=== PATIENT | female | born 1935 | race Two or more races ===

== ENCOUNTER 2018-08-11 08:32 | Inpatient (IN) | payer MEDICARE, OTHER ==
[~2018-08-11] VITALS: Ht 157.5 cm; Wt 59.0 kg
[~2018-08-11 08:32] MED LIST: OLME1TAB50 PO; RIVA10TA PO
[2018-08-11] MEDS ORDERED: CELECOXIB 100 MG CAPSULE ONE (10:14)
[2018-08-11] MEDS ORDERED: ACETAMINOPHEN 325 MG TABLET ONE ×2 (10:14→10:16)
[2018-08-11] MEDS ORDERED: oxyCODONE HCL SR 10MG TAB.SR.12H PO ONE (10:14)
[2018-08-11] MEDS ORDERED: TRANEXAMIC ACID 3,000 MG in SODIUM CHLORIDE IRRIG SOLUTION 70 ML IR ONE (10:30)
[2018-08-11] MEDS ORDERED: BACITRACIN 50000 UNITS/VIAL ONE (10:44)
[2018-08-11] MEDS ORDERED: BUPIVACAINE 0.5 % PF 150 MG/30 ML VIAL ONE (10:44)
[2018-08-11] MEDS ORDERED: LIDOCAINE /MPF 1% VIAL 5 ML VIAL ONE (10:45)
[2018-08-11] MEDS ORDERED: MIDAZOLAM HCL 2 MG/2ML VIAL ONE (10:48)
[2018-08-11] MEDS ORDERED: FENTANYL PF 250MCG/5ML AMPUL ONE (10:48)
[2018-08-11] MEDS ORDERED: ROCURONIUM BROMIDE 50 MG/5 ML ONE (10:49)
[2018-08-11] MEDS ORDERED: ZOLPIDEM TARTRATE 10 MG TABLET PO PRN (12:00)
[2018-08-11] MEDS ORDERED: BISACODYL SUPP (10 MG) 10 MG/SUPP.RECT SUPP.RECT RC PRN (12:00)
[2018-08-11] MEDS ORDERED: ONDANSETRON HCL/PF 4 MG/2 ML VIAL IV PRN (12:00)
[2018-08-11] MEDS ORDERED: HYDROMORPHONE 1 MG/1 ML DISP.SYRIN SQ PRN (12:00)
[2018-08-11] MEDS ORDERED: MAG HYDROX/AL HYDROX/SIMETH 30 ML UDC PO PRN (12:00)
[2018-08-11] MEDS ORDERED: diphenhydrAMINE HCL 25 MG CAPSULE PO PRN (12:00)
[2018-08-11] MEDS ORDERED: CLONIDINE HCL 0.1 MG TABLET PO PRN (12:00)
[2018-08-11] MEDS ORDERED: FENTANYL PF 100MCG/2ML AMPUL ONE (13:22)
[2018-08-11 14:10] VITALS: BP 132/71
--- NOTE | 2018-08-11 14:10 | NUR ---
MOLD REPAIRER NOTES PATIENT ADMITTED FROM OR 83Y/OLD FEMALE ON TOTAL RIGHT HIP SURGERY. PATIENT A/O X3, ABDUCTION PILLOW ON, DVT PUMP ON, IV ACCESS ON RIGHT AC, AND LEFT WRIST INTACT, STARTED LR AT 75 ML./HR INTACT, PATIENT HAS NO ACUTE RESPIRATORY DISTRESS, ON NC, PATIENT WAS COMPLAINING OF PAIN 7/10 AT THIS TIME ON RIGHT HIP.V/S STABLE T-97.7, P65, R-19, BP-132/71, O2-99NC. PATIENT USING BEDPAN, ASSIST TURN AND REPOSTION Q 2 HR. GIVEN INTENSIVE SPIROMETER AND EDUCATED. PATIENT VERBALIZED UNDERSTANDING. ORDERS TAKEN AND CARRIED OUT. HOSPITALIST AWARE OF NEW PATIENT. SON NEXT TO THE BED, CONTINUED MONITORING.
[2018-08-11] MEDS ORDERED: ACETAMINOPHEN 325 MG TABLET PO PRN (14:30)
[2018-08-11] MEDS ORDERED: SENNOSIDES 8.6 MG TABLET PO PRN (14:30)
[2018-08-11] MEDS: IV LR 1000 ML 1,000 ML IV PRN (14:55)
--- NOTE | 2018-08-11 15:14 | NUR ---
RN NOTES ADMINISTERED DILAUDID 0.5 MG /ML SQ RIGHT DELTOID ATRA PER PATIENT REQUEST PAIN 7/10, V/S TAKEN BP 115/67, P-68. SON NEXT OT THE B, CALL LIGHT WITHIN TO REACH, CONTINUED MONITORING.
[2018-08-11 15:17] VITALS: BP 115/67
[2018-08-11 16:00] VITALS: BP 102/56
[2018-08-11] MEDS ORDERED: BISO5TAB2 PO (16:36)
[2018-08-11] MEDS: DOCUSATE SODIUM 100 MG CAPSULE PO SCH (17:17)
[2018-08-11] MEDS: HYDROCODONE/APAP 5/325MG 1 EACH TABLET PO PRN (18:43)
--- NOTE | 2018-08-11 18:43 | NUR ---
RN NOTES ADMINISTERED NARCO 5/325 MG PO PRN FOR RIGHT HIP PAIN 5/10 PER PATIENT REQUEST, BP-102/56, P-58. PUT PATIENT BED BORREGO BY PATIENT UNABLE TO URINATE, OFFERED MORE FLUIDS TOLERATED. ASSIST PATIENT TURN ON LEFT SIDE USING PILLOWS. ABDUCTION PILLOW ON, CALL LIGHT WITHIN TO REACH, PATIENT USING SPIROMETER, CALL LIGHT WITHIN TO REACH, CONTINUED MONITORING. ENDORSED ONCOMING NURSE FOR PLAN OF CARE.
[2018-08-11] MEDS ORDERED: Z GUARD REMEDY 2 OZ OINT TP PRN (19:00)
--- NOTE | 2018-08-11 19:10 | NUR ---
MS RN NOTE RECEIVED PT IN STABLE CONDITION A&O X4, ABLE TO MAKE NEEDS KNOWN. CURRENTLY RESTING IN BED. NO SIGNS OF SOB OR DISTRESS, NO C/O PAIN. IVF INFUSING, TOLERATING WELL. LAU PATENT WITH ADEQUATE URINE DRAINING. ALL CURRENT NEEDS MET. SAFETY PRECAUTIONS IN PLACE: BED LOW, LOCKED, UPPER RAILS UP, AND CALL LIGHT WITHIN REACH.
--- NOTE | 2018-08-11 19:30 | NUR ---
RN NOTES PATIENT UNABLE TO URINATE , BLADDER SCAN DONE GET 298 ML, APPLIED F/C SIZE 16 WITH ASSIST OF NIGHT NURSE.
[2018-08-11 20:00] VITALS: BP 107/65
[2018-08-11] MEDS: ANCEF 1 GM/50 ML D5W IV SCH ×2 (20:13)
[2018-08-11] MEDS: FAMOTIDINE (20 MG) 20 MG TABLET PO SCH (20:14)
--- NOTE | 2018-08-11 22:30 | NUR ---
MS RN NOTE ASSESSED PT'S PAIN. PT STATES THAT PAIN IS TOLERABLE AT THIS TIME AND DOES NOT REQUEST ANY PAIN MEDICATION. WILL CONT TO MONITOR.
[2018-08-12] MEDS: ANCEF 1 GM/50 ML D5W IV SCH ×2 (03:01)
[2018-08-12] MEDS: IV LR 1000 ML 1,000 ML IV PRN ×2 (05:18→23:34)
--- NOTE | 2018-08-12 06:29 | NUR ---
MS RN NOTE PT IN STABLE CONDITION A&O X4, ABLE TO MAKE NEEDS KNOWN. CURRENTLY RESTING IN BED. NO SIGNS OF SOB OR DISTRESS, NO C/O PAIN. IVF INFUSING, TOLERATING WELL. LAU PATENT WITH ADEQUATE URINE DRAINING. ALL CURRENT NEEDS MET. SAFETY PRECAUTIONS IN PLACE: BED LOW, LOCKED, UPPER RAILS UP, AND CALL LIGHT WITHIN REACH AND ENDORSE TO NEXT SHIFT FOR CARY.
[2018-08-12 07:01] LABS: BASOPHILS % (AUTO) 0.1 % (0.0-2.0); EOSINOPHILS % (AUTO) 0.1 % (0.0-6.0); HEMATOCRIT 32 % (33-45); HEMOGLOBIN 10.7 g/dL (11.5-14.8); LYMPHOCYTES # (AUTO) 1.3 /CMM (0.8-4.8); LYMPHOCYTES % (AUTO) 10.4 % (20.0-44.0); MEAN CORPUSCULAR HGB CONC 33 g/dl (31.0-36.0); MEAN CORPUSCULAR VOLUME 84 fL (82-100); MONOCYTES # (AUTO) 1.2 /CMM (0.1-1.30); MONOCYTES % (AUTO) 9.4 % (2.0-12.0); PLATELET COUNT (AUTO) 164 /CMM (150-450); RED BLOOD CELL COUNT(AUTO) 3.81 MIL/uL (4.0-5.2); WHITE BLOOD COUNT (AUTO) 12.4 K/uL (4.3-11.0)
[2018-08-12 07:07] LABS: CHOLESTEROL 179 mg/dL (<200); HDL CHOLESTEROL 31 mg/dL (40-60); LDL 128 mg/dL (0-99); THYROID STIMULATING HORMONE 1.198 uIU/mL (0.358-3.74); TRIGLYCERIDES 175 mg/dL (30-150)
[2018-08-12 07:13] LABS: CALCIUM, SERUM 9.1 mg/dL (8.5-10.1); CARBON DIOXIDE 24 mmol/L (21-32); CHLORIDE 106 mmol/L (98-107); GLUCOSE 161 mg/dL (74-106); MAGNESIUM 2.1 mg/dL (1.8-2.4); PHOSPHORUS 4.3 mg/dL (2.5-4.9); POTASSIUM 4.5 mmol/L (3.5-5.1); SODIUM SERUM 141 mmol/L (136-145); UREA NITROGEN, BLOOD 25 mg/dL (7-18)
[2018-08-12 08:00] VITALS: BP 122/50
[2018-08-12] MEDS: DOCUSATE SODIUM 100 MG CAPSULE PO SCH ×2 (09:07→17:19)
[2018-08-12] MEDS: FAMOTIDINE (20 MG) 20 MG TABLET PO SCH ×2 (09:08→21:16)
[2018-08-12] MEDS: HYDROCODONE/APAP 5/325MG 1 EACH TABLET PO PRN ×3 (09:12→21:16)
--- NOTE | 2018-08-12 15:00 | NUR ---
D/C SID . WILL MONITOR
[2018-08-12 16:00] VITALS: BP 91/51
[2018-08-12] MEDS: RIVAROXABAN 10 MG TABLET PO SCH (17:24)
--- NOTE | 2018-08-12 19:00 | NUR ---
PATIENT IN BED . AWAKE A/O X4 , ABLE TO USE BSC. ALL NEEDS ATTENDED, IV FLUID RUNNING AT 75 ML/HR. WILL ENDORSE TO NEXT SHIFT FOR CARY.
--- NOTE | 2018-08-12 19:00 | NUR ---
POD#1 S/P right LUIS.Met with patient at bedside. Her primary language is French but speaks and understand some Kinyarwanda. She is alert and very pleasant. She lives locally with her son and his family in a single level home. Prior to hospitalization, she was ambulatory, driving and independent with adl's. She has adequate DME from her previous surgery: walker, wheelchair, cane, shower chair and commode. Has no existing homehealth. Discussed ARU for rehab but patient want to return home with home PT. Her son will provide ride when discharge. Addendum: 08/12/18 at 2251 by ANNETTE DUONG RN Amended: Links added.
--- NOTE | 2018-08-12 19:50 | NUR ---
RN MS OPENING NOTE RECEIVED BEDSIDE REPORT, PT LAYING IN BED, AWAKE ALERT ORIENTEDX4 BREATHING EVEN AND UNLABORED ON ROOM AIR NO SIGNS OF SOB. NO COMPLAINT OF PAIN OR DISCOMFORT AT THIS TIME. IV ACCESS ON THE R FA 20G, AND LFA 20 G LR @75ML/HR WILL CONTINUE TO MONITOR FREQUENTLY.
[2018-08-12 20:00] VITALS: BP 97/46
[2018-08-13] VITALS: BP 108/60
--- NOTE | 2018-08-13 06:03 | NUR ---
RN MS CLOSING NOTES PT REMAINS LAYING IN BED, SLEEPING, EASILY AROUSED TO NAME CALL. BREATHING EVEN AND UNLABORED ON ROOM AIR NO SIGNS OF SOB. RATES PAIN A 7/10, NORCO ADMINISTERED. IV ACCESS ON THE R FA 20G, AND LFA 20 G LR @75ML/HR WILL ENDORSE TO DAY NURSE FOR CARY
[2018-08-13] MEDS: HYDROCODONE/APAP 5/325MG 1 EACH TABLET PO PRN ×4 (06:14→22:08)
--- NOTE | 2018-08-13 08:00 | NUR ---
MS RN NOTES PATIENT IN BED RESTING NO SOB OR ACUTE DISTRESS NOTED. PATIENT ALERT, ORIENTED X3. BED IN LOW LOCKED POSITION CALL LIGHT WITHIN REACH. WILL CONTINUE TO MONITOR.
[2018-08-13 08:13] LABS: BASOPHILS % (AUTO) 0.2 % (0.0-2.0); EOSINOPHILS % (AUTO) 3.6 % (0.0-6.0); HEMATOCRIT 27 % (33-45); HEMOGLOBIN 9.1 g/dL (11.5-14.8); LYMPHOCYTES % (AUTO) 19.3 % (20.0-44.0); MEAN CORPUSCULAR HGB CONC 34 g/dl (31.0-36.0); MEAN CORPUSCULAR VOLUME 82 fL (82-100); MONOCYTES # (AUTO) 1.2 /CMM (0.1-1.30); MONOCYTES % (AUTO) 11.4 % (2.0-12.0); NEUTROPHILS # (AUTO) 6.7 /CMM (1.8-8.9); NEUTROPHILS % (AUTO) 65.5 % (43.0-81.0); PLATELET COUNT (AUTO) 144 /CMM (150-450); RED BLOOD CELL COUNT(AUTO) 3.23 MIL/uL (4.0-5.2); WHITE BLOOD COUNT (AUTO) 10.3 K/uL (4.3-11.0)
[2018-08-13 08:29] LABS: CALCIUM, SERUM 8.5 mg/dL (8.5-10.1); CARBON DIOXIDE 27 mmol/L (21-32); CHLORIDE 107 mmol/L (98-107); CREATININE 0.9 mg/dL (0.6-1.3); GLUCOSE 131 mg/dL (74-106); POTASSIUM 3.8 mmol/L (3.5-5.1); SODIUM SERUM 142 mmol/L (136-145); UREA NITROGEN, BLOOD 22 mg/dL (7-18)
[2018-08-13 08:41] VITALS: BP 127/58
[2018-08-13] MEDS: DOCUSATE SODIUM 100 MG CAPSULE PO SCH ×2 (08:45→16:52)
[2018-08-13] MEDS: FAMOTIDINE (20 MG) 20 MG TABLET PO SCH ×2 (08:45→20:55)
[2018-08-13] MEDS ORDERED: RIVA10TA PO (16:39)
[2018-08-13 16:42] VITALS: BP 95/50
[2018-08-13] MEDS: RIVAROXABAN 10 MG TABLET PO SCH (16:52)
--- NOTE | 2018-08-13 18:05 | NUR ---
MS RN NOTES PATIENT WAS SEEN BY JOHN DE LA CRUZ ORDERS RECEIVED FOR DISCHARGED HOME WITH HOME HEALTH PATIENT REQUESTS TO STAY ONE MORE NIGHT. ENDORSED TO JOHN PATIENTS REQUEST STATES OK IF PATIENT STAYS ONE MORE NIGHT. OK TO DISCHARGE PATIENT ON 08/14/2018.
--- NOTE | 2018-08-13 18:21 | NUR ---
MS RN NOTES PATIENT IN BED RESTING NO SOB OR ACUTE DISTRESS NOTED. PATIENTS PAIN WAS CONTROLLED WITH PO MEDICATIONS. ALL DUE MEDICATIONS ADMINISTERED. ALL NEEDS MET. WILL ENDORSE TO PM SHIFT CARY.
--- NOTE | 2018-08-13 19:30 | NUR ---
MS/RN NOTES RECEIVED PT. LYING IN BED. PT. IS AWAKE, ALERT AND ORIENTED X3. BREATHING EVEN AND UNLABORED ON ROOM AIR. NO SOB, RESPIRATORY DISTRESS OR COMPLAINTS OF PAIN NOTED AT THIS TIME. PT. WITH RIGHT FOREARM 20 GAUGE IV SALINE LOCK PRESENT, PATENT AND INTACT. PT. WITH LEFT FOREARM 20 GAUGE IV SALINE LOCK PRESENT, PATENT AND INTACT. PER DAYSHIFT NURSE PT. DISCHARGE ORDER WAS PLACED TODAY BUT PT. REQUESTING TO STAY ANOTHER NIGHT FOR PAIN MANAGEMENT AND DISCHARGE HOME TOMORROW. PER DAYSHIFT NURSE MD VAZQUEZ NOTIFIED, AWARE AND OK FOR PT. TO STAY TONIGHT AND BE DISCHARGED TOMORROW. BED LOCKED AND IN LOWEST POSITION, SIDE RAILS UP X2, CALL LIGHT WITHIN REACH, WILL CONTINUE TO MONITOR.
[2018-08-13 20:00] VITALS: BP 124/67
--- NOTE | 2018-08-14 06:36 | NUR ---
MS/RN NOTES PT. IS LYING IN BED RESTING, BREATHING EVEN AND UNLABORED ON ROOM AIR. NO SOB, RESPIRATORY DISTRESS OR COMPLAINTS OF PAIN NOTED AT THIS TIME. PT. WITH RIGHT FOREARM 20 GAUGE IV SALINE LOCK PRESENT, PATENT AND INTACT. PT. WITH LEFT FOREARM 20 GAUGE IV SALINE LOCK PRESENT, PATENT AND INTACT. ALL PT. NEEDS MET. BED LOCKED AND IN LOWEST POSITION, SIDE RAILS UP X2, CALL LIGHT WITHIN REACH, WILL ENDORSE TO DAYSHIFT NURSE FOR CONTINUITY OF CARE.
--- NOTE | 2018-08-14 07:50 | NUR ---
M/S RN OPENING NOTES RECEIVED PATIENT ON BED SUPINE POSITION, A/O X 4 AND ABLE TO MAKE NEEDS KNOWN, RESPONSIVE TO ALL STIMULI. RESPIRATION EVEN AND NON LABORED WITH NO ACUTE RESPIRATORY DISTRESS. ABDOMEN SOFT AND NON DISTENDED WITH ACTIVE BOWEL SOUNDS TO ALL QUADRANTS, BEDSIDE COMMODE ABLE TO REACH. SKIN WARM TO TOUCH AND DRY. PATIENT DENIES PAIN AND DISCOMFORT AT THIS TIME. IV SITE AT RIGHT AC AND LEFT FA WITH NO S/SX OF INFILTRATION. ALL CONCERNS ATTENDED. PLACED CALL LIGHT WITH REACH FOR SAFETY. WITH ORDER OF DISCHARGE TODAY AND PATIENT AWARE, ANGELY (SON) WILL PICK HER UP AROUND NOON TIME. WILL CONTINUE TO EVALUATE CARE.
[2018-08-14 08:00] VITALS: BP 114/66
[2018-08-14] MEDS: DOCUSATE SODIUM 100 MG CAPSULE PO SCH (08:56)
[2018-08-14] MEDS: FAMOTIDINE (20 MG) 20 MG TABLET PO SCH (08:56)
--- NOTE | 2018-08-14 13:40 | NUR ---
M/S WRINKLE CHASER NOTES PATIENT DISCHARGED IN STABLE CONDITION ACCOMPANIED BY ANGELY (SON) AND GRANDSON WHEELED OUT BY ELDA FLANNERY IN SAFE CONDITION. PATIENT A/O X 4 AND ABLE TO MAKE NEEDS KNOWN. ASSESSED NO SHORTNESS OF BREATH AND ABLE TO TOLERATE ROOM AIR SATING 99-100%. PATIENT DENIES PAIN AND DISCOMFORT. DRESSING ON RIGHT HIP CHANGED WITH NEW DRESSING AND ABLE TO TOLERATE WELL, SKIN WARM AND DRY TO TOUCH. EXIT CARE PROVIDED WITH MEDICATION NEEDED TO BE CONTINUED AND NEW MEDICATIONS PRESCRIBED WITH PATIENT AND SON VERBAL UNDERSTANDING. IV TAKEN OFF AND ID BAND PER HOSPITAL POLICY. DISCHARGED DATE 08/14/2018 AT 1340.
== END 2018-08-14 13:45 | disposition home health service (06) | DRG 470 ==
LOC: DS 08:32 → MED 13:49
PROVIDERS: ADMIT Hospitalist; ATTEND Hospitalist
PROC: 0SR90JZ Replacement of Right Hip Joint with Synthetic Substitute, Open Approach (ICD-10-PCS; principal; 2018-08-11)
DX: M16.11 Unilateral primary osteoarthritis, right hip (principal); I10 Essential (primary) hypertension; Z96.642 Presence of left artificial hip joint; D64.9 Anemia, unspecified; D72.829 Elevated white blood cell count, unspecified; Z95.0 Presence of cardiac pacemaker
CPT/HCPCS: 36415; 80048-TC; 80061-TC; 82962-TC; 83735-TC; 84100-TC; 84443-TC; 85025-TC; 86850-TC; 86921-TC; 87081-TC; 88305-TC; 88311-TC; 97110-TC; 97116-TC; 97530-TC; A4217; A6209; A6402; G0378; J0690; J1170; J2250; J2310; J2405; J2704; J2710; J2765; J3010; J3490; J7060; J7120; Q0163